=== PATIENT | male | born 1960 ===

== ENCOUNTER 2025-03-11 18:19 | Inpatient (IN) | payer OTHER, SELFPAY ==
[2025-03-11] VITALS (14 sets, daily range): BP systolic 103–132; BP diastolic 62–79; BMI 28.1
[2025-03-11 11:39] LABS: Urine Albumin 4+ (Neg - Trace); Urine Bilirubin 1+ (Negative); Urine Character Cloudy (Clear); Urine Color Yellow; Urine Glucose Negative (Negative); Urine Ketone Negative (Negative); Urine Leukocyte 1+ (Negative); Urine Nitrite Negative (Negative); Urine Occult Blood 4+ (Negative); Urine Urobilinogen 1+ (Neg - 1+)
[2025-03-11 11:55] LABS: Urine Bacteria Moderate (Negative); Urine Squamous Cell 0-2 /LPF (Few)
[2025-03-11 11:57] LABS: Urine Red Blood Cell 0-2 /HPF (0-2)
[2025-03-11 12:14] LABS: % Basophils 0.5 % (0-2); % Eosinophils 1.6 % (0-6); % Immature Granulocytes 0.4 % (0-0.5); % Lymphocytes 7.1 % (20.5-51.1); % Monocytes 14.4 % (1.7-9.3); Absolute Eosinophils 0.1 10^3/uL (0-0.7); Absolute Lymphocytes 0.5 10^3/uL (1.2-3.4); Absolute Monocytes 1.1 10^3/uL (0.1-0.6); Absolute Neutrophils 5.6 10^3/uL (1.4-6.5); Hematocrit 34.3 % (39.0-52.0); Hemoglobin 12.1 g/dL (13.0-18.0); Mean Corp Hgb Conc. 35.3 g/dL (33.0-37.0); Mean Corpuscular Hgb 39.2 pg (27.0-31.0); Nucleated Red Blood Cells % 0 % (-); Red Blood Cell Count 3.09 10^6/uL (4.70-6.10); Red Cell Dist. Width 13.8 % (11.5-14.5); White Blood Cell Count 7.4 10^3/uL (4.8-10.8)
[2025-03-11 12:17] LABS: ALT (SGPT) 166 U/L (0-50); Albumin 3.6 g/dl (3.5-5.0); Alkaline Phosphatase 268 U/L (38-126); Blood Urea Nitrogen 20 mg/dl (9-20); Calcium 8.8 mg/dl (8.4-10.2); Carbon Dioxide 21 mmol/L (22-30); Chloride 109 mmol/L (98-107); Glucose 106 mg/dl (70-99); Lipase 540 U/L (23-300); Potassium 3.5 mmol/L (3.5-5.1); Sodium 142 mmol/L (135-145); Total Bilirubin 1.8 mg/dl (0.2-1.3); Total Protein 6.8 g/dl (6.3-8.2); eGFR 47.52
[2025-03-11 12:23] LABS: AST (SGOT) 1083 U/L (17-59)
[2025-03-11 12:32] LABS: Mean Platelet Volume 11.3 fL (7.4-10.4); Platelet Count 88 10^3/uL (130-400)
[2025-03-11] MEDS: NSS 500 IV (12:54)
[2025-03-11 13:28] LABS: Acetaminophen < 10 ug/ml (10-30); Alcohol None Detected
--- NOTE | 2025-03-11 13:44 | ED.GENMED ---
History of Present Illness
<Karla Guerrero MD - Last Filed: 03/11/25 16:04>
General
Chief Complaint: Urinary Symptoms
Source: patient
Time Seen by Provider: 03/11/25 12:38
History of Present Illness
History of Present Illness:
This patient is a 64-year-old male who presents to the emergency department multiple complaints. He states that his symptoms all started about a week ago, described dark urine although his stool is unchanged in color associated with 'the muscles in
my legs really hurt', partially relieved with Motrin as well as very slight episodes gastric discomfort. Patient has a history of alcohol use disorder, says that he averages approximately 4 drinks a day but has not had a drink alcohol in the last 2
weeks. He denies black stool, hematemesis, chest pain, dyspnea, back pain, fever, chills, headache, dizziness. Patient denies acetaminophen use, recent injections/tattoos, sick contacts.
Past History
<Karla Guerrero MD - Last Filed: 03/11/25 16:04>
Past History
ED Past Medical History: Other (Hypercholesterolemia, sleep apnea, pancreatitis, a flutter)
Social History
Tobacco: Non-smoker
Alcohol: Chronic alcoholic
Drug: None
Living: alone
Phy Exam
<KIRA Camargo - Last Filed: 03/18/25 05:56>
Physical Exam
Physical Exam:
n/a
Course
<Karla Guerrero MD - Last Filed: 03/11/25 16:04>
Orders/Labs/Results
Orders:
Orders
03/11/25 11:16
Complete Blood Count/With Diff Urgent
Comprehensive Metabolic Panel Urgent
Lipase Urgent
Magnesium Urgent
Comment: ADD ON
Phosphorus Urgent
Comment: ADD ON
Urinalysis Reflex To Culture Urgent
Date Specimen was Collected: 03/11/25
Time Specimen was Collected: 11:13
Urine Microscopic Reflex Cult Urgent
Urine Culture Urgent
BHARAT Source: U
Specimen Description:
Date Specimen was Collected: 03/11/25
Time Specimen was Collected: 11:13
03/11/25 12:41
0.9% Sodium Chloride 500 ml [Nss] 500 ml IV BOLUS
US Abdomen Complete/Upper Urgent
Comment:
Reason For Exam: abnl lfts
03/11/25 12:52
Acetaminophen Urgent
Alcohol Urgent
03/11/25 13:48
Electrocardiogram (*1) Urgent
Reason for Study: Abdominal Pain
EKG- Treatment ONCE
03/11/25 14:42
CPK [Creatine Phosphokinase] Urgent
Hepatitis A IgM Antibody Urgent
Hepatitis B Core Ab, IgM Urgent
Hepatitis B Surface Antibody Urgent
Hepatitis B Surface Antigen Urgent
Hepatitis C Antibody Urgent
PTT Urgent
Prothrombin Time Urgent
Troponin I Urgent
03/11/25 Dinner
Cholesterol Lowering
At Your Request: Full Participation
Cholesterol Lowering: Sodium, 2 Gram
03/11/25 15:52
0.9% Sodium Chloride 1000 ml [Nss] 1,000 ml IV BOLUS
03/11/25 16:00
0.45% Sodium Chloride 1000 ml [0.45%NaCl] 1,000 ml Sodium Bicarbonate 75 meq IV 250 mls/hr
03/11/25 16:15
0.45% Sodium Chloride 1000 ml [0.45%NaCl] 1,000 ml Sodium Bicarbonate 75 meq IV 250 mls/hr
03/11/25 16:58
Admit/Transfer Patient As Directed
Co-Sign Provider:
Level of Care: Inpatient admission
Assign to:: Telemetry
Physician / Group: Jared Serrano
Diagnosis: rhabdomyolysis, acute kidney injury, transaminitis
Reason for Telemetry: Arrhythmia
Date to Stop Telemetry: 03/14/25
Time to Stop Telemetry: 11:00
Reason for Hospitalization: rhabdomyolysis, acute kidney injury, transaminitis
Expected length of stay greater than two midnights?: Yes
ELOS- Estimated Length of Stay in days: 3
I certify the patient meets the requirements for IP care: Yes
PRN Pain Medication Management As Directed
May give lesser potent ordered pain med per pt: Yes
preference::
Protocol:: Medication orders for pain may be administered in a
manner that supports deferring to patient preference
when the pt is:
- Requesting an ordered lesser potent pain medication.
Least to most potent pain medications are defined
as: acetaminophen < NSAID < tramadol < opioids
(morphine, oxycodone, hydromorphone).
- Requesting a lesser dose of the same medication IF
ORDERED.
- Requesting a less intrusive route of administration
if both routes are prescribed by the provider (PO <
IV).
03/11/25 17:01
Code Status As Directed
Resuscitation Status: Full Code
03/11/25 17:20
0.9% Sodium Chloride 1000 ml [Nss] 1,000 ml IV 150 mls/hr
03/11/25 17:20
Activity As Directed
Activity Level: Ambulate
Vital Signs As Directed
Frequency: Per unit guidelines
Weight As Directed
Frequency: Once
Comment: on admission
03/11/25 18:00
Metoprolol Xl [Toprol Xl] 200 mg PO QPM
03/11/25 19:00
Amiodarone [Pacerone] 100 mg PO MOWEFR@1900
03/11/25 20:00
Apixaban [Eliquis] 5 mg PO BID
03/11/25 21:09
Troponin I Q6H
03/12/25 04:10
Complete Blood Count/No Diff IN AM
Comprehensive Metabolic Panel IN AM
Creatine Phosphokinase IN AM
Lipase IN AM
Prothrombin Time IN AM
Troponin I Q6H
03/12/25 08:00
Metoprolol Xl [Toprol Xl] 100 mg PO DAILY
03/14/25 11:00
DC Protocol for Telemetry ONCE
Abnormal Lab Results
03/11/25 03/11/25 03/11/25
11:16 12:52 14:42
RBC 3.09 L 10^6/uL
(4.70-6.10)
Hgb 12.1 L g/dL
(13.0-18.0)
Hct 34.3 L %
(39.0-52.0)
MCV 111.0 H fL
(80.0-94.0)
MCH 39.2 H pg
(27.0-31.0)
Plt Count 88 L 10^3/uL
(130-400)
MPV 11.3 H fL
(7.4-10.4)
Absolute Lymphs (auto) 0.5 L 10^3/uL
(1.2-3.4)
Absolute Monos (auto) 1.1 H 10^3/uL
(0.1-0.6)
Neutrophils % 76.0 H %
(42.2-75.2)
Lymphocytes % 7.1 L %
(20.5-51.1)
Monocytes % 14.4 H %
(1.7-9.3)
PT 23.0 H Sec
(11.4-14.6)
APTT 49.4 H Sec
(23.4-35.0)
Chloride 109 H mmol/L
(98-107)
Carbon Dioxide 21 L mmol/L
(22-30)
Creatinine 1.6 H mg/dL
(0.7-1.3)
Glucose 106 H mg/dl
(70-99)
Total Bilirubin 1.8 H mg/dl
(0.2-1.3)
AST 1083 H* U/L
(17-59)
ALT 166 H U/L
(0-50)
Alkaline Phosphatase 268 H U/L
(38-126)
Creatine Kinase 58402 H U/L
(55-170)
Troponin I 0.055 H* ng/ml
Lipase 540 H U/L
(23-300)
Ur Occult Blood Reflex 4+ A
(Negative)
Urine Bilirubin 1+ A
(Negative)
Leukocyte Esterase Rfl 1+ A
(Negative)
Urine WBC (Reflex) 11-15 A /HPF
(0-5)
Urine Bacteria (Reflex) Moderate A
(Negative)
Urine Albumin (Reflex) 4+ A
(Neg - Trace)
Acetaminophen < 10 L ug/ml
(10-30)
03/11/25 11:16
03/11/25 11:16
Vital Signs
Initial and Last Documented VS:
Initial Vital Signs
Temp Pulse Resp BP Pulse Ox
97.6 F 60 18 105/62 98
03/11/25 11:10 03/11/25 11:10 03/11/25 11:10 03/11/25 11:10 03/11/25 11:10
Last Documented Vital Signs
Temp Pulse Resp BP Pulse Ox
97.9 F 58 20 123/75 95
03/17/25 07:51 03/17/25 07:51 03/17/25 07:51 03/17/25 07:51 03/17/25 07:51
<KIRA Camargo - Last Filed: 03/18/25 05:56>
Orders/Labs/Results
Orders:
Orders
03/11/25 11:16
Complete Blood Count/With Diff Urgent
Comprehensive Metabolic Panel Urgent
Lipase Urgent
Magnesium Urgent
Comment: ADD ON
Phosphorus Urgent
Comment: ADD ON
Urinalysis Reflex To Culture Urgent
Date Specimen was Collected: 03/11/25
Time Specimen was Collected: 11:13
Urine Microscopic Reflex Cult Urgent
Urine Culture Urgent
BHARAT Source: U
Specimen Description:
Date Specimen was Collected: 03/11/25
Time Specimen was Collected: 11:13
03/11/25 12:41
0.9% Sodium Chloride 500 ml [Nss] 500 ml IV BOLUS
US Abdomen Complete/Upper Urgent
Comment:
Reason For Exam: abnl lfts
03/11/25 12:52
Acetaminophen Urgent
Alcohol Urgent
03/11/25 13:48
Electrocardiogram (*1) Urgent
Reason for Study: Abdominal Pain
EKG- Treatment ONCE
03/11/25 14:42
CPK [Creatine Phosphokinase] Urgent
Hepatitis A IgM Antibody Urgent
Hepatitis B Core Ab, IgM Urgent
Hepatitis B Surface Antibody Urgent
Hepatitis B Surface Antigen Urgent
Hepatitis C Antibody Urgent
PTT Urgent
Prothrombin Time Urgent
Troponin I Urgent
03/11/25 Dinner
Cholesterol Lowering
At Your Request: Full Participation
Cholesterol Lowering: Sodium, 2 Gram
03/11/25 15:52
0.9% Sodium Chloride 1000 ml [Nss] 1,000 ml IV BOLUS
03/11/25 16:00
0.45% Sodium Chloride 1000 ml [0.45%NaCl] 1,000 ml Sodium Bicarbonate 75 meq IV 250 mls/hr
03/11/25 16:15
0.45% Sodium Chloride 1000 ml [0.45%NaCl] 1,000 ml Sodium Bicarbonate 75 meq IV 250 mls/hr
03/11/25 16:58
Admit/Transfer Patient As Directed
Co-Sign Provider:
Level of Care: Inpatient admission
Assign to:: Telemetry
Physician / Group: Jared Serrano
Diagnosis: rhabdomyolysis, acute kidney injury, transaminitis
Reason for Telemetry: Arrhythmia
Date to Stop Telemetry: 03/14/25
Time to Stop Telemetry: 11:00
Reason for Hospitalization: rhabdomyolysis, acute kidney injury, transaminitis
Expected length of stay greater than two midnights?: Yes
ELOS- Estimated Length of Stay in days: 3
I certify the patient meets the requirements for IP care: Yes
PRN Pain Medication Management As Directed
May give lesser potent ordered pain med per pt: Yes
preference::
Protocol:: Medication orders for pain may be administered in a
manner that supports deferring to patient preference
when the pt is:
- Requesting an ordered lesser potent pain medication.
Least to most potent pain medications are defined
as: acetaminophen < NSAID < tramadol < opioids
(morphine, oxycodone, hydromorphone).
- Requesting a lesser dose of the same medication IF
ORDERED.
- Requesting a less intrusive route of administration
if both routes are prescribed by the provider (PO <
IV).
03/11/25 17:01
Code Status As Directed
Resuscitation Status: Full Code
03/11/25 17:20
0.9% Sodium Chloride 1000 ml [Nss] 1,000 ml IV 150 mls/hr
03/11/25 17:20
Activity As Directed
Activity Level: Ambulate
Vital Signs As Directed
Frequency: Per unit guidelines
Weight As Directed
Frequency: Once
Comment: on admission
03/11/25 18:00
Metoprolol Xl [Toprol Xl] 200 mg PO QPM
03/11/25 19:00
Amiodarone [Pacerone] 100 mg PO MOWEFR@1900
03/11/25 20:00
Apixaban [Eliquis] 5 mg PO BID
03/11/25 21:09
Troponin I Q6H
03/12/25 04:10
Complete Blood Count/No Diff IN AM
Comprehensive Metabolic Panel IN AM
Creatine Phosphokinase IN AM
Lipase IN AM
Prothrombin Time IN AM
Troponin I Q6H
03/12/25 08:00
Metoprolol Xl [Toprol Xl] 100 mg PO DAILY
03/14/25 11:00
DC Protocol for Telemetry ONCE
Abnormal Lab Results
03/11/25 03/11/25 03/11/25
11:16 12:52 14:42
RBC 3.09 L 10^6/uL
(4.70-6.10)
Hgb 12.1 L g/dL
(13.0-18.0)
Hct 34.3 L %
(39.0-52.0)
MCV 111.0 H fL
(80.0-94.0)
MCH 39.2 H pg
(27.0-31.0)
Plt Count 88 L 10^3/uL
(130-400)
MPV 11.3 H fL
(7.4-10.4)
Absolute Lymphs (auto) 0.5 L 10^3/uL
(1.2-3.4)
Absolute Monos (auto) 1.1 H 10^3/uL
(0.1-0.6)
Neutrophils % 76.0 H %
(42.2-75.2)
Lymphocytes % 7.1 L %
(20.5-51.1)
Monocytes % 14.4 H %
(1.7-9.3)
PT 23.0 H Sec
(11.4-14.6)
APTT 49.4 H Sec
(23.4-35.0)
Chloride 109 H mmol/L
(98-107)
Carbon Dioxide 21 L mmol/L
(22-30)
Creatinine 1.6 H mg/dL
(0.7-1.3)
Glucose 106 H mg/dl
(70-99)
Total Bilirubin 1.8 H mg/dl
(0.2-1.3)
AST 1083 H* U/L
(17-59)
ALT 166 H U/L
(0-50)
Alkaline Phosphatase 268 H U/L
(38-126)
Creatine Kinase 68724 H U/L
(55-170)
Troponin I 0.055 H* ng/ml
Lipase 540 H U/L
(23-300)
Ur Occult Blood Reflex 4+ A
(Negative)
Urine Bilirubin 1+ A
(Negative)
Leukocyte Esterase Rfl 1+ A
(Negative)
Urine WBC (Reflex) 11-15 A /HPF
(0-5)
Urine Bacteria (Reflex) Moderate A
(Negative)
Urine Albumin (Reflex) 4+ A
(Neg - Trace)
Acetaminophen < 10 L ug/ml
(10-30)
03/11/25 11:16
03/11/25 11:16
Vital Signs
Initial and Last Documented VS:
Initial Vital Signs
Temp Pulse Resp BP Pulse Ox
97.6 F 60 18 105/62 98
03/11/25 11:10 03/11/25 11:10 03/11/25 11:10 03/11/25 11:10 03/11/25 11:10
Last Documented Vital Signs
Temp Pulse Resp BP Pulse Ox
97.9 F 58 20 123/75 95
03/17/25 07:51 03/17/25 07:51 03/17/25 07:51 03/17/25 07:51 03/17/25 07:51
<KIRA Camargo - Last Filed: 03/18/25 05:56>
*Critical Care Note
Total Time (30-74mins, 75-104mins- exclusive of procedures): Not Applicable
<Karla Guerrero MD - Last Filed: 03/11/25 16:04>
Update Note
Update Note:
Patient presents to the Emergency Department with dark urine
Number and Complexity of Problems Addressed at the Encounter
� Chronic conditions affecting care:
� Acute Exacerbation and/or Progression of Chronic Illness:
� Differential Diagnosis includes: But not limited to alcoholic hepatitis, infectious hepatitis, pancreatitis, gastritis, peptic ulcer disease, rhabdomyolysis, etc. etc.
Amount and/or Complexity of Data to be Reviewed and Analyzed
� I performed an independent evaluation of and my interpretation is:
EKG: Read by me, sinus bradycardia, Q waves noted septal leads no prior for comparison
CT:
Xrays:Normal appearance the gallbladder with no evidence for biliary ductal dilation.
Diffuse fatty infiltration of the liver with no evidence for a focal hepatic lesion.
Splenomegaly.
The pancreas, upper abdominal IVC, and the upper abdominal aorta are unable to be adequately visualized.
Laboratory Studies: Transaminase elevation suggestive of alcoholic hepatitis, chronic thrombocytopenia, chronic anemia, elevated creatinine. LFT abnormalities also noted in alk phos and total bili. Lipase slightly elevated
Other:
� Review of other/old records reveals: Admitted with pancreatitis related to elevated triglyceride levels
� Clinical information was obtained by an independent historian:
� Prescriptions/Medications Considered but not given:
� Further testing considered but not performed:
CPK just resulted and very elevated, add on mag and phos level, started ivf and bicarb, will admit. trop elevated withotu assoc iscehmic changes, cp, etc.
Rhabdo may related to patient's history of alcohol use disorder or his use of a statin as the most likely possibilities, doubt infection. No signs or symptoms to suggest compartment syndrome. Will monitor pH and lites closely. Case discussed with
hospitalist for admission.
Risk of Complications and/or Morbidity or Mortality of Patient Management
� Social determinants of health affecting care:
� Discussion with other providers (PCP, Hospitalists, Consultants, etc):
� Escalation of care including admission/observation vs risk of discharge considered:
ED Attending Note
<KIRA Camargo - Last Filed: 03/18/25 05:56>
-
Portions of this chart may have been created with voice recognition software.� Occasional wrong word or��sound alike� substitutions may have occurred due to the inherent limitations of voice recognition software.
Discharge Plan
Departure
Patient Disposition: Admit
Date of Disposition: 03/11/25
Time of Disposition: 15:59
Presentation/result/management discussed w/ accepting MD/DO: Hospitalist
Condition: Fair
Discharge Problem:
Abnormal LFTs, Rhabdomyolysis, Acute renal insufficiency, Hepatitis
Interventions
Interventions:
*Risk Screen - Suicide Last Done: 03/11/25 11:12
*General Assessment Last Done: 03/11/25 11:12
*Neglect/Abuse Screening Last Done: 03/11/25 11:12
*ED- Fall Risk Assessment Last Done: 03/11/25 12:44
*ED COVID-19 Vaccine History Last Done: 03/11/25 11:12
*Nursing Disposition Last Done: 03/12/25 18:56
ED-Male Genitourinary Assessment Last Done: 03/11/25 12:44
Discharge Date and Time
Discharge Date/Time: 03/12/25 18:56
[2025-03-11 15:25] LABS: Troponin I 0.055 ng/ml
[2025-03-11 15:38] LABS: Creatine Phosphokinase 21658 U/L (55-170)
[2025-03-11 15:50] LABS: INR 2.02
[2025-03-11 15:51] LABS: APTT 49.4 Sec (23.4-35.0)
[2025-03-11] MEDS: NSS 1000 IV ×2 (15:59→17:48)
--- NOTE | 2025-03-11 16:02 | HPS.HSE ---
Family Physician
-
Family Physician: NOT KNOW UNKNOWN - PT DOES
Chief Complaint
-
dark urine
History of Present Illness
Patient is a 64-year-old male with past medical history significant for atrial flutter and hypercholesterolemia who presented to [facility] ED for evaluation of dark urine. Patient reports a week ago on 03/04/2025 he noticed that he had muscle pain in
back legs in thighs and calves. Same day he noticed dark urine, brown in color. He decided to increased fluids to approximately 4 bottles a day thinking he was dehydrated and this has not helped. Urine has remained dark and still has muscle
discomfort now also in bilateral arms. He does report night sweats with foul odor. Has some shortness of breath with exertion and poor appetite. Patient denies any recent injury or trauma. Denies any fever, chills, cough, chest pain, nausea,
vomiting, constipation or diarrhea. He denies any other urinary symptoms outside of dark urine. He mentions he has been a daily drink up until about 2 weeks ago, would have approximately 4 drinks a night while watching TV.
Medical History
Past Medical History
Past Medical History: Reports Other
Additional Past Medical History:
atrial flutter
hypercholesterolemia
hypertriglyceridemia
Hx pancreatitis
Past Surgical History: Reports Other
Additional Past Surgical History:
inguinal hernia repair
Social History
Tobacco: Non-smoker
Alcohol: Former (4 drinks per night, stopped approximately 2 weeks ago )
Drug: None
Personal:
Living: With Family
Employment: Retired
Family History
Family History: Not pertinent and Other (Father: Non-Hogkins lymphoma )
Allergies / Home Medications
Allergies reflects when Allergies were last updated in [employer].
Home Medications with original date entered in [employer]
Allergy/Medication List:
Allergies
Allergy/AdvReac Type Severity Reaction Status Date / Time
Opioids - Morphine Analogues Allergy Vomiting Verified 07/01/22 16:52
Home Medications
apixaban 5 mg tablet (Eliquis) 5 mg PO BID Blood clot prevention/tx 05/28/22
metoprolol succinate 100 mg tablet,extended release 24 hr 200 mg PO QPM Arrhythmia 05/28/22
ibuprofen 200 mg tablet 800 mg PO DAILYPRN PRN mild pain 07/01/22
amiodarone 100 mg tablet 100 mg PO MOWEFR@1900 03/11/25
metoprolol succinate 100 mg tablet,extended release 24 hr (Toprol XL) 100 mg PO DAILY 03/11/25
rosuvastatin 20 mg tablet (Crestor) 20 mg PO DAILY 03/11/25
Review of Systems
-
History Source: Patient
Constitutional: Reports Night Sweats
EENT: Reports No Symptoms
Respiratory: Reports Trouble Breathing (exertional shortness of breath )
Cardiac: Reports No Symptoms
Abdomen/GI: Reports No Symptoms
: Reports Dark Urine
Musculoskeletal: Reports No Symptoms and Muscle Pain (generalized )
Skin: Reports No Symptoms
Neurological: Reports No Symptoms
Endocrine: Reports No Symptoms
Hematologic/Lymphatic: Reports No Symptoms
Psych: Reports No Symptoms
Physical Exam
Vital Signs
Vital Signs
Temp Pulse Resp BP Pulse Ox
97.6 F 60 18 115/72 99
03/11/25 11:10 03/11/25 11:10 03/11/25 11:10 03/11/25 15:00 03/11/25 15:45
Physical Exam
General: Well Developed, Well Nourished, No Apparent Distress, Comfortable and Obese
HEENT: NormoCephalic, Moist mucous membranes, Atraumatic, [place] Conjunctivae, Nose Appears Normal and Ears Appear Normal
Respiratory: Clear
Cardiac: S1/S2 and Regular Rhythm
Breast: Deferred by me
GI: Soft, Non Tender, Non Distended and Normal Bowel Sounds
Rectal: Deferred by Provider
Genito-urinary: Deferred by me
Musculoskeletal: No Clubbing, No Cyanosis and No Edema
Skin: Warm and IV/Catheter Site
Neuro: Awake, Alert, AO x 3 and Nonfocal/grossly intact
Psych: Calm and Intact Judgment/Insight
Laboratory Results
-
03/11/25 11:16
03/11/25 11:16
Laboratory Results
PT 23.0 Sec (11.4-14.6) H 03/11/25 14:42
INR 2.02 03/11/25 14:42
APTT 49.4 Sec (23.4-35.0) H 03/11/25 14:42
Total Bilirubin 1.8 mg/dl (0.2-1.3) H 03/11/25 11:16
AST 1083 U/L (17-59) H* 03/11/25 11:16
ALT 166 U/L (0-50) H 03/11/25 11:16
Alkaline Phosphatase 268 U/L (38-126) H 03/11/25 11:16
Troponin I 0.055 ng/ml H* 03/11/25 14:42
Lipase 540 U/L (23-300) H 03/11/25 11:16
Data Reviewed
-
Ultrasound: Report Reviewed by me (Abd: Normal appearance the gallbladder with no evidence for biliary ductal dilation. Diffuse fatty infiltration of the liver with no evidence for a focal hepatic lesion. Splenomegaly. The pancreas, upper
abdominal IVC, and the upper abdominal aorta are unable to be adequately visualized. )
Lab Data: Labs Reviewed by me (INR 3.02, BUN 20, Creat 1.6, eGFR 47.52, tot bili1.8, AST 1083, ALT 166, Alk Phos 268, [place] [address], Trop 0.055)
Impression/Plan
-
IMPRESSION/PLAN:
#rhabdomyolysis
INR 3.02, BUN 20, Creat 1.6, eGFR 47.52, tot bili1.8, AST 1083, ALT 166, Alk Phos 268, [place] [address], Trop 0.055
Abdomen US: Normal appearance the gallbladder with no evidence for biliary ductal dilation.
Diffuse fatty infiltration of the liver with no evidence for a focal hepatic lesion.
Splenomegaly.
The pancreas, upper abdominal IVC, and the upper abdominal aorta are unable to be adequately visualized.
EKG: SINUS BRADYCARDIA
LOW VOLTAGE QRS INLIMB LEADS
INFERIOR INFARCT , AGE UNDETERMINED
CANNOT RULE OUT ANTEROSEPTAL INFARCT , AGE UNDETERMINED
NON-SPECIFIC INTRA-VENTRICULAR CONDUCTION DELAY
PROLONGED QT
- Admit to telemetry
- IVF NSS 150cc/hr
- trend CK, LFTs and troponin
#acute kidney injury
BUN 20, Creat 1.6, eGFR 47.52
- IVF NSS 100cc/hr
- monitor BMP
#transaminitis
INR 3.02, tot bili1.8, AST 1083, ALT 166, Alk Phos 268, [place] [address]
mild epigastric discomfort, poor appetite
- trend LFTs and INRs
- hold ibuprofen and statin
- consider GI if symptoms or labs worsen
#atrial flutter
EKG: SINUS BRADYCARDIA
LOW VOLTAGE QRS INLIMB LEADS
INFERIOR INFARCT , AGE UNDETERMINED
CANNOT RULE OUT ANTEROSEPTAL INFARCT , AGE UNDETERMINED
NON-SPECIFIC INTRA-VENTRICULAR CONDUCTION DELAY
PROLONGED QT
- continue amiodarone, Eliquis and metoprolol
#hypercholesterolemia
#hypertriglyceridemia
- hold rosuvastatin in setting of transaminitis
#Hx pancreatitis
Code status: full code
DVT prophylaxis: Eliquis
[2025-03-11 16:30] LABS: Phosphorus 2.9 mg/dl (2.5-4.5)
--- NOTE | 2025-03-11 16:56 | W.PN.UPDATE ---
Update Note
Progress Note Update
This is an addendum to H&P written by Elizabeth King on 03/11/2025. Patient seen and examined independently with [facility].
64-year-old male past medical history of atrial flutter on Eliquis, hypertriglyceridemia, prior pancreatitis, alcohol use disorder, presenting with multiple complaints starting a week ago including dark urine, bilateral leg pain with Motrin use,
mild vague abdominal discomfort and decreased appetite.
Vital signs normal. Labs show severe transaminitis with AST up to 1000, CK of 21,000, lipase of 540, creatinine 1.6 from 1.3 previously. Troponin of 0.055. Platelets of 88. INR of 2.
EKG shows sinus bradycardia, voltage QRS.
Abdominal ultrasound shows normal-appearing gallbladder without biliary ductal dilatation. Please fatty infiltration of the liver with no focal hepatic lesion. Splenomegaly.
Patient with acute rhabdomyolysis unclear cause with transaminitis likely secondary to rhabdomyolysis although higher than would be expected with rhabdomyolysis. Hepatitis panel pending. Slight troponin elevation and CECILIA likely from rhabdomyolysis.
IV fluids, trend CK level. Trend LFTs. Hepatitis panel pending. Hold NSAID. Hold statin.
INR elevated 2 which is also atypical for rhabdomyolysis and Eliquis use. No signs of acute liver failure given albumin 3.6 and normal mental status. Recheck INR in the morning.
Consider GI if LFTs continue to worsen or patient develops worsening GI symptoms.
[2025-03-11 18:26] LABS: Hepatitis B Surface Antigen Negative (Negative)
[2025-03-11 18:30] LABS: Hepatitis A IgM Antibody Negative (Negative); Hepatitis B Core Ab, IgM Negative (Negative)
[2025-03-11 18:44] LABS: Hepatitis B Surface Antibody Negative; Hepatitis C Antibody Negative (Negative)
[2025-03-11] MEDS: ELIQUIS 5 MG PO (21:11)
[2025-03-11 21:50] LABS: Troponin I 0.047 ng/ml
[2025-03-11] MEDS: TOPROL XL 200 MG PO (21:52)
[2025-03-11] MEDS: PACERONE 100 MG PO (21:52)
[2025-03-12] VITALS (20 sets, daily range): BP systolic 92–130; BP diastolic 53–75; BMI 28.1; BMI 29.8
[2025-03-12] MEDS: NSS 1000 IV ×4 (00:26→22:04)
[2025-03-12] MEDS: DILAUDID 0.25 MG IV (01:53)
[2025-03-12 04:28] LABS: Hematocrit 28.9 % (39.0-52.0); Hemoglobin 9.9 g/dL (13.0-18.0); Mean Corp Hgb Conc. 34.3 g/dL (33.0-37.0); Mean Corpuscular Volume 113.8 fL (80.0-94.0); Mean Platelet Volume 11.4 fL (7.4-10.4); Platelet Count 85 10^3/uL (130-400); Red Blood Cell Count 2.54 10^6/uL (4.70-6.10); Red Cell Dist. Width 13.9 % (11.5-14.5)
[2025-03-12 04:43] LABS: ALT (SGPT) 130 U/L (0-50); AST (SGOT) 652 U/L (17-59); Albumin 2.7 g/dl (3.5-5.0); Alkaline Phosphatase 213 U/L (38-126); Blood Urea Nitrogen 21 mg/dl (9-20); Calcium 7.7 mg/dl (8.4-10.2); Carbon Dioxide 24 mmol/L (22-30); Chloride 110 mmol/L (98-107); Estimated Creatinine Clearance 57 ml/min; Glucose 100 mg/dl (70-99); Lipase 415 U/L (23-300); Potassium 3.2 mmol/L (3.5-5.1); Sodium 141 mmol/L (135-145); Total Protein 5.5 g/dl (6.3-8.2); eGFR > 60.00
[2025-03-12 04:52] LABS: Creatine Phosphokinase 14279 U/L (55-170)
[2025-03-12 04:54] LABS: Troponin I 0.063 ng/ml
[2025-03-12] MEDS: ELIQUIS 5 MG PO ×2 (08:27→20:34)
[2025-03-12] MEDS: TOPROL XL 100 MG PO (08:27)
[2025-03-12] MEDS: KCL 40 MEQ PO (08:30)
[2025-03-12] MEDS: TYLENOL 650 MG PO (09:25)
[2025-03-12] MEDS: ROXICODONE 5 MG PO ×2 (11:48→22:04)
[2025-03-12] MEDS: TIGAN 200 MG IM (11:48)
--- NOTE | 2025-03-12 12:41 | W.PN.HOSP.TC ---
Today's Communication/Plan
-
Pain control
Continue with aggressive IV fluid resuscitation
Hold Crestor
Trend enzymes
Assessment / Plan
Assessment / Plan
#Severe rhabdomyolysis/myalgia likely 2/2 to Crestor
# Transaminitis likely secondary to rhabdomyolysis
# Elevated troponin likely secondary rhabdomyolysis
- CPK was significantly elevated on admission. CPK downtrending
- Continue with aggressive IV fluid resuscitation.
- AST and ALT improving
- Abdominal ultrasound noted
- T. bili and downtrended to normal. Seems chronically elevated AST.
- Continue to trend CPK and LFTs.
#acute kidney injury
#Hypokalemia
- Creatinine downtrending. Continue with IV fluid resuscitation
-Replete and monitor
#atrial flutter
- continue amiodarone, Eliquis and metoprolol
#hypercholesterolemia
#hypertriglyceridemia
- hold rosuvastatin in setting of transaminitis
#Hx pancreatitis
#Hepatic steatosis
#Splenomegaly
- Will will need close outpatient follow-up
# History of gout
- Takes ibuprofen as needed for gout pain.
Code status: full code
DVT prophylaxis: Eliquis
Anticipated Discharge: > 48 hours
Subjective/Interval History
-
Date of Service: March 12, 2025
states of left thigh/leg pain which started last week
states history of severe gout
Objective Data
-
Labs:
Laboratory Results
03/12/25
04:10
WBC 6.0
Hgb 9.9 L
Hct 28.9 L
Plt Count 85 L
PT 22.0 H
INR 1.90
Sodium 141
Potassium 3.2 L
Chloride 110 H
Carbon Dioxide 24
BUN 21 H
Creatinine 1.3
Glucose 100 H
Calcium 7.7 L
Total Bilirubin 1.0
AST 652 H*
ALT 130 H
Alkaline Phosphatase 213 H
Vital Signs:
Vital Signs
Temp Pulse Resp BP Pulse Ox
98.6 F 66 17 95/67 93
03/12/25 11:26 03/12/25 11:17 03/12/25 11:17 03/12/25 11:17 03/12/25 11:17
Physical Exam
-
General: Well Developed and No Apparent Distress
HEENT: Normocephalic, Atraumatic and Moist Mucous Membranes
Respiratory: Clear to Auscultation
Cardiac: Regular Rhythm and S1/S2; Negative Murmur, Rub or Gallop
GI: Soft, Nontender, Nondistended and Normal Bowel Sounds; Negative Organomegaly
Rectal: Deferred by Provider
Musculoskeletal: No Clubbing, No Cyanosis and No Edema
Skin: Warm; Negative Rash
Neuro: Awake, Alert, Oriented, AO x 3, No Motor Deficits and Nonfocal/Grossly Intact
Psych: Calm
Data Reviewed
-
Total Time Spent with Patient (in minutes): 55
--- NOTE | 2025-03-12 16:27 | CM ---
Addendum entered by Gia Reilly 03/12/25 16:37:
Notified Admissions; Family Physician updated on medical record
Original Note:
Met with patient at the bedside in the ED
Pharmacy verified: [facility] @ [address] [place] [address]
Family Physician: Jona Miles DO; [facility], [facility] [place] [address];
Patient lives w/ ; multilevel home; 0 steps to enter; 12 steps between floors; patient's bedroom and bath are on the 1st floor; bath has tub w/ shower
PLOF: at baseline patient reports he is independent with ambulation and ADLs; drives; retired
DME: has a cane and crutches; uses PRN
No SNF or Home Health utilization history
Transport: patient drove self to hospital; will drive self home unless told not to do so
Per PT, NO skilled PT needed
Plan: Discharge to home when medically stable; Case Management will monitor for needs/services and support accordingly
--- NOTE | 2025-03-12 17:27 | PTCARENOTE ---
hr 58. scheduled to give 200mg of Metoprol. hos. notified. instructed to hold med.
[2025-03-13] MEDS: ROXICODONE 5 MG PO ×2 (02:05→07:56)
[2025-03-13] MEDS: TYLENOL 650 MG PO (02:28)
[2025-03-13 04:12] VITALS: BP 109/59
[2025-03-13 04:15] VITALS: BMI 30.2
[2025-03-13] MEDS: NSS 1000 IV (04:15)
[2025-03-13 07:21] LABS: % Basophils 0.3 % (0-2); % Eosinophils 0.6 % (0-6); % Immature Granulocytes 0.3 % (0-0.5); % Lymphocytes 10.2 % (20.5-51.1); % Monocytes 23.4 % (1.7-9.3); % Neutrophils 65.2 % (42.2-75.2); Absolute Lymphocytes 0.7 10^3/uL (1.2-3.4); Absolute Monocytes 1.5 10^3/uL (0.1-0.6); Absolute Neutrophils 4.2 10^3/uL (1.4-6.5); Hematocrit 26.8 % (39.0-52.0); Hemoglobin 9.3 g/dL (13.0-18.0); Mean Corp Hgb Conc. 34.7 g/dL (33.0-37.0); Mean Corpuscular Hgb 38.8 pg (27.0-31.0); Mean Corpuscular Volume 111.7 fL (80.0-94.0); Mean Platelet Volume 11.5 fL (7.4-10.4); Nucleated Red Blood Cells % 0 % (-); Platelet Count 97 10^3/uL (130-400); Red Cell Dist. Width 13.8 % (11.5-14.5); White Blood Cell Count 6.4 10^3/uL (4.8-10.8)
[2025-03-13 07:30] VITALS: BP 166/64
[2025-03-13 07:36] LABS: ALT (SGPT) 98 U/L (0-50); AST (SGOT) 392 U/L (17-59); Albumin 2.7 g/dl (3.5-5.0); Alkaline Phosphatase 194 U/L (38-126); Blood Urea Nitrogen 16 mg/dl (9-20); Calcium 7.5 mg/dl (8.4-10.2); Carbon Dioxide 20 mmol/L (22-30); Chloride 111 mmol/L (98-107); Estimated Creatinine Clearance 64 ml/min; Glucose 100 mg/dl (70-99); Potassium 3.2 mmol/L (3.5-5.1); Sodium 138 mmol/L (135-145); Total Bilirubin 1.2 mg/dl (0.2-1.3); Total Protein 5.5 g/dl (6.3-8.2); Uric Acid 2.9 mg/dl (3.5-8.5); eGFR > 60.00
[2025-03-13] MEDS: TOPROL XL 100 MG PO (07:55)
[2025-03-13] MEDS: ELIQUIS 5 MG PO ×2 (07:55→21:57)
[2025-03-13 07:59] LABS: Total CK 8586 U/L (55-170)
[2025-03-13 08:24] LABS: CKMB 12.7 ng/ml (0.0-3.4)
[2025-03-13] MEDS: KCL ELIXIR 40 MEQ PO (08:29)
[2025-03-13] MEDS: LR 1000 IV ×2 (08:31→16:50)
[2025-03-13] MEDS: DELTASONE 50 MG PO (10:17)
[2025-03-13] MEDS: COLCHICINE 0.6 MG PO (10:22)
[2025-03-13 10:48] LABS: Erythrocyte Sed Rate 86 mm/hour (0-20)
--- NOTE | 2025-03-13 11:18 | W.PN.HOSP.TC ---
Today's Communication/Plan
-
decrease fluid
IS
sterids for gout
pain control
Assessment / Plan
Assessment / Plan
#Severe rhabdomyolysis/myalgia likely 2/2 to Crestor
# Transaminitis likely secondary to rhabdomyolysis
# Elevated troponin likely secondary rhabdomyolysis
- CPK was significantly elevated on admission. CPK downtrending to 8k now.
- Continue with aggressive IV fluid resuscitation.
- AST and ALT improving
- Abdominal ultrasound noted
- T. bili and downtrended to normal. Seems chronically elevated AST.
- Continue to trend CPK and LFTs.
#acute kidney injury
#Hypokalemia
- Creatinine downtrending. Continue with IV fluid resuscitation
-Replete and monitor
#Acute on chronic gout flare up
-start patient on prednisone 50mg
-colchine x 1 dose only as interaction w/amiodarone. will d/w with pharmacy.
-ESR/CRP elevated. Afebrile.
#atrial flutter
- continue amiodarone, Eliquis and metoprolol
#hypercholesterolemia
#hypertriglyceridemia
- hold rosuvastatin in setting of transaminitis
#Hx pancreatitis
#Hepatic steatosis
#Hx of alcohol abuse
#Splenomegaly
- Will will need close outpatient follow-up w/ GI
Code status: full code
DVT prophylaxis: Eliquis
Anticipated Discharge: > 48 hours
Subjective/Interval History
-
Date of Service: March 13, 2025
States of left elbow and knee pain continues.
Denies shortness of breath
states has history of gout and takes NSAIDs at home
Objective Data
-
Labs:
Laboratory Results
03/13/25
06:34
WBC 6.4
Hgb 9.3 L
Hct 26.8 L
Plt Count 97 L
Sodium 138
Potassium 3.2 L
Chloride 111 H
Carbon Dioxide 20 L
BUN 16
Creatinine 1.3
Glucose 100 H
Calcium 7.5 L
Total Bilirubin 1.2
AST 392 H
ALT 98 H
Alkaline Phosphatase 194 H
Vital Signs:
Vital Signs
Temp Pulse Resp BP Pulse Ox
98.2 F 65 16 166/64 96
03/13/25 07:30 03/13/25 07:30 03/13/25 07:30 03/13/25 07:30 03/13/25 07:30
I&O
03/12/25 03/13/25 03/14/25
06:59 06:59 06:59
Intake Total 2760 / 2760
Output Total 350 / 350
Balance 2410 / 2410
Physical Exam
-
General: Well Developed and No Apparent Distress
HEENT: Normocephalic, Atraumatic and Moist Mucous Membranes
Respiratory: Clear to Auscultation
Cardiac: Regular Rhythm and S1/S2; Negative Murmur, Rub or Gallop
GI: Soft, Nontender, Nondistended and Normal Bowel Sounds; Negative Organomegaly
Rectal: Deferred by Provider
Musculoskeletal: No Clubbing, No Cyanosis, No Edema and Other (Left elbow and left knee pain-TTP. No erythema or significant swelling noted. Sensation intact. )
Skin: Warm; Negative Rash
Neuro: Awake, Alert, Oriented, AO x 3, No Motor Deficits, Nonfocal/Grossly Intact, Central Nerve's Intact and No Sensory Deficits; Negative Tremors, Sedated, Slurred Speech or Facial Droop
Psych: Calm
Data Reviewed
-
Total Time Spent with Patient (in minutes): 56
[2025-03-13 11:40] VITALS: BP 129/75
[2025-03-13] MEDS: ROXICODONE 10 MG PO ×3 (11:50→21:56)
--- NOTE | 2025-03-13 12:05 | CM ---
Patient seen at bedside
pain control, steroids
PLAN: Home, no needs anticipated
drove self
--- NOTE | 2025-03-13 12:52 | PN.CDI ---
CDI
- -
CDI:
Physician Documentation Request
Admit Date: 03/11/25 18:19
Dear Doctor Clementina,
Patient admitted with severe rhabdomyolysis likely 2/2 to [facility]
Troponin noted to be elevated.
Laboratory Tests
03/11/25 03/11/25 03/12/25
14:42 21:09 04:10
Troponin I 0.055 H* 0.047 H* 0.063 H* D
Could you please provide a diagnosis that supports the etiology of the elevated troponin:
Non ischemic myocardial injury
Type II KS demand ischemia
Other
Use of terms such as suspected, likely, concern for, or probable (associated with a specific diagnosis that is being evaluated, monitored, or treated as if it exists) are acceptable and can be coded in the inpatient setting, when documented at the
time of discharge.
Thank you,
Parvin Sin RN, BSN
CDI Specialist
tiger text
Please use your independent medical judgment in providing your response.
--- NOTE | 2025-03-13 14:15 | PTCARENOTE ---
patient's left elbow and left knee pain continues. PRN Roxicodone with increased dose of 10mgs vs 15mgs with effectiveness. tolerating diet, left knee and left elbow tender to palpation with edema/swelling. decreased ROM of left elbow especially
due to pain, turns with assist x1, vss, will continue to monitor.
[2025-03-13 15:45] VITALS: BP 119/72
[2025-03-13] MEDS: PACERONE 100 MG PO (18:14)
[2025-03-13 19:00] VITALS: BP 117/67
[2025-03-13] MEDS: TOPROL XL 200 MG PO (21:58)
[2025-03-13 23:00] VITALS: BP 124/78
[2025-03-14 03:00] VITALS: BP 110/69
[2025-03-14 06:17] VITALS: BMI 31.1
[2025-03-14 07:05] LABS: % Immature Granulocytes 0.5 % (0-0.5); % Lymphocytes 4.2 % (20.5-51.1); % Monocytes 18.2 % (1.7-9.3); % Neutrophils 77.1 % (42.2-75.2); Absolute Lymphocytes 0.4 10^3/uL (1.2-3.4); Absolute Monocytes 1.5 10^3/uL (0.1-0.6); Absolute Neutrophils 6.4 10^3/uL (1.4-6.5); Hematocrit 27.3 % (39.0-52.0); Hemoglobin 9.2 g/dL (13.0-18.0); Mean Corp Hgb Conc. 33.7 g/dL (33.0-37.0); Mean Corpuscular Hgb 38.5 pg (27.0-31.0); Mean Corpuscular Volume 114.2 fL (80.0-94.0); Mean Platelet Volume 11.4 fL (7.4-10.4); Nucleated Red Blood Cells % 0 % (-); Platelet Count 113 10^3/uL (130-400); Red Blood Cell Count 2.39 10^6/uL (4.70-6.10); White Blood Cell Count 8.3 10^3/uL (4.8-10.8)
[2025-03-14 07:17] LABS: ALT (SGPT) 91 U/L (0-50); AST (SGOT) 266 U/L (17-59); Alkaline Phosphatase 175 U/L (38-126); Blood Urea Nitrogen 20 mg/dl (9-20); Calcium 7.8 mg/dl (8.4-10.2); Carbon Dioxide 19 mmol/L (22-30); Chloride 111 mmol/L (98-107); Estimated Creatinine Clearance 70 ml/min; Glucose 124 mg/dl (70-99); Sodium 139 mmol/L (135-145); Total Bilirubin 1.4 mg/dl (0.2-1.3); eGFR > 60.00
[2025-03-14 07:30] LABS: Total CK 6055 U/L (55-170)
[2025-03-14 08:03] LABS: CKMB 14.1 ng/ml (0.0-3.4)
[2025-03-14 08:04] VITALS: BP 115/66
[2025-03-14] MEDS: ELIQUIS 5 MG PO ×2 (09:15→21:10)
[2025-03-14] MEDS: DELTASONE 50 MG PO (09:16)
[2025-03-14] MEDS: SODIUM BICARBONATE 650 MG PO ×3 (09:16→21:10)
[2025-03-14] MEDS: TOPROL XL 100 MG PO (09:16)
[2025-03-14] MEDS: ROXICODONE 10 MG PO ×3 (09:19→21:17)
[2025-03-14] MEDS: LR 1000 IV ×2 (09:21→16:05)
[2025-03-14] MEDS: LR IV (09:23)
--- NOTE | 2025-03-14 11:14 | W.PN.HOSP.TC ---
Today's Communication/Plan
-
Check elbow and knee x-ray
Ice pack
Naproxen x 1
Continue with aggressive fluid resuscitation
Continue with steroids
Assessment / Plan
Assessment / Plan
#Severe rhabdomyolysis/myalgia likely 2/2 to Crestor
# Transaminitis likely secondary to rhabdomyolysis
# Elevated troponin likely secondary rhabdomyolysis
- CPK was significantly elevated on admission. CPK downtrending to 6k now from 21K on admission.
- Continue with aggressive IV fluid resuscitation.
- AST and ALT continues to improving
- Abdominal ultrasound noted
- T. bili and downtrended to normal. Seems chronically elevated AST.
- Continue to trend CPK and LFTs.
- Showing signs of mild anasarca.
#acute kidney injury
#Hypokalemia
-Creatinine downtrending. Continue with IV fluid resuscitation
-Replete and monitor
#Acute on chronic gout flare up
# Left knee and elbow pain secondary to above
-start patient on prednisone 50mg. One-time dose of naproxen
-colchine x 1 dose only as interaction w/amiodarone. d/w with pharmacy.
-ESR/CRP elevated. Afebrile.
-Check left knee and elbow x-ray. Left elbow movement significantly improved. Ice pack of the left knee.
-Did recommend to discuss with primary about discussion about allopurinol in the future
#atrial flutter
- continue amiodarone, Eliquis and metoprolol
#hypercholesterolemia
#hypertriglyceridemia
- hold rosuvastatin in setting of transaminitis
#Hx pancreatitis
#Hepatic steatosis
#Hx of alcohol abuse
#Splenomegaly
- Will will need close outpatient follow-up w/ GI
- Quit drinking 2 weeks ago. Used to drink 4 drinks per night for the past 2 years continuously
Code status: full code
DVT prophylaxis: Eliquis
PT eval in am
Anticipated Discharge: > 48 hours
Subjective/Interval History
-
Date of Service: March 14, 2025
Pt with significant improvement in left upper extremity movement. Pain has decreased
States remains with left knee pain
Objective Data
-
Labs:
Laboratory Results
03/14/25
06:29
WBC 8.3
Hgb 9.2 L
Hct 27.3 L
Plt Count 113 L
Sodium 139
Potassium 4.0
Chloride 111 H
Carbon Dioxide 19 L
BUN 20
Creatinine 1.2
Glucose 124 H
Calcium 7.8 L
Total Bilirubin 1.4 H
AST 266 H
ALT 91 H
Alkaline Phosphatase 175 H
Vital Signs:
Vital Signs
Temp Pulse Resp BP Pulse Ox
97.8 F 67 18 115/66 92
03/14/25 08:04 03/14/25 08:04 03/14/25 08:04 03/14/25 08:04 03/14/25 08:04
I&O
03/13/25 03/14/25 03/15/25
06:59 06:59 06:59
Intake Total 2760 / 2760 640 / 640
Output Total 350 / 350 1300 / 1300
Balance 2410 / 2410 -660 / -660
Data Reviewed
-
Total Time Spent with Patient (in minutes): 55
[2025-03-14 11:26] VITALS: BP 105/71
[2025-03-14] MEDS: NAPROSYN 500 MG PO (11:32)
[2025-03-14 15:19] VITALS: BP 118/77
[2025-03-14] MEDS: TOPROL XL 200 MG PO (21:11)
[2025-03-15 00:37] VITALS: BP 113/73
[2025-03-15] MEDS: LR 1000 IV ×3 (01:05→20:35)
[2025-03-15 07:29] LABS: ALT (SGPT) 96 U/L (0-50); AST (SGOT) 217 U/L (17-59); Albumin 3.3 g/dl (3.5-5.0); Alkaline Phosphatase 182 U/L (38-126); Blood Urea Nitrogen 31 mg/dl (9-20); Calcium 8.4 mg/dl (8.4-10.2); Carbon Dioxide 22 mmol/L (22-30); Chloride 108 mmol/L (98-107); Estimated Creatinine Clearance 60 ml/min; Glucose 99 mg/dl (70-99); Potassium 4.3 mmol/L (3.5-5.1); Sodium 139 mmol/L (135-145); Total Bilirubin 1.2 mg/dl (0.2-1.3); Total Protein 6.4 g/dl (6.3-8.2); eGFR 55.78
[2025-03-15 07:53] LABS: Total CK 4618 U/L (55-170)
[2025-03-15 07:57] LABS: % Immature Granulocytes 0.5 % (0-0.5); % Lymphocytes 4.6 % (20.5-51.1); % Monocytes 12.9 % (1.7-9.3); Absolute Lymphocytes 0.4 10^3/uL (1.2-3.4); Absolute Neutrophils 6.6 10^3/uL (1.4-6.5); Hematocrit 30.5 % (39.0-52.0); Hemoglobin 10.4 g/dL (13.0-18.0); Mean Corp Hgb Conc. 34.1 g/dL (33.0-37.0); Mean Corpuscular Volume 111.3 fL (80.0-94.0); Mean Platelet Volume 11.5 fL (7.4-10.4); Nucleated Red Blood Cells % 0 % (-); Platelet Count 136 10^3/uL (130-400); Red Blood Cell Count 2.74 10^6/uL (4.70-6.10); Red Cell Dist. Width 13.9 % (11.5-14.5); White Blood Cell Count 8.1 10^3/uL (4.8-10.8)
[2025-03-15 08:02] VITALS: BP 120/75
[2025-03-15 08:39] LABS: CKMB 22.1 ng/ml (0.0-3.4)
[2025-03-15] MEDS: DELTASONE 50 MG PO (09:20)
[2025-03-15] MEDS: TOPROL XL 100 MG PO (09:21)
[2025-03-15] MEDS: ELIQUIS 5 MG PO ×2 (09:21→20:29)
[2025-03-15] MEDS: SODIUM BICARBONATE 650 MG PO ×3 (09:21→20:29)
--- NOTE | 2025-03-15 09:32 | PN.CDI ---
CDI
- -
CDI:
Physician Documentation Request
Admit Date: 03/11/25 18:19
Dear Doctor Clementina,
Patient admitted with severe rhabdomyolysis likely secondary to Crestor.
Progress notes also include a diagnosis of CECILIA.
Creatinine results:
Laboratory Tests
03/11/25 03/12/25 03/13/25
11:16 04:10 06:34
Creatinine 1.6 H 1.3 1.3
03/14/25 03/15/25
06:29 06:46
Creatinine 1.2 1.4 H
Criteria for CECILIA*
1 Increase in serum creatinine by > or = to 0.3 mg/dL (> or = to 26.5 micromol/L) within 48 hours, OR
2 Increase in serum creatinine to > or = to 1.5 times baseline, which is known or presumed to have occurred within 7 days, OR
3 Urine volume < 0.5 nL/kg/hour for six hours
Based on the above information and the recognized standard for CECILIA could you please verify this diagnoses is still accurate and reflective of the patient�s condition to ensure quality of the medical record.
Please clarify in the Progress Notes:
�CECILIA is/was present and is a clinical diagnosis based on (please include this additional support in the medical record)
�After study CECILIA has been ruled out
�Other
Use of terms such as suspected, likely, concern for, or probable (associated with a specific diagnosis that is being evaluated, monitored, or treated as if it exists) are acceptable and can be coded in the inpatient setting, when documented at the
time of discharge.
Thank you,
Parvin Sin RN, BSN
CDI Specialist
tiger text
Please use your independent medical judgment in providing your response.
--- NOTE | 2025-03-15 11:27 | W.PN.HOSP.TC ---
Addendum entered and electronically signed by Markus Mcrae MD 03/16/25 12:31:
Chronic anemia and thrombocytopenia? Due to alcohol abuse
Monitor for now
Original Note:
Today's Communication/Plan
-
reduce IVF rate
compression therapy
Ice pack to knee
steroids for gout
duoneb
PT eval
Assessment / Plan
Assessment / Plan
#Severe rhabdomyolysis/myalgia likely 2/2 to Crestor
# Transaminitis likely secondary to rhabdomyolysis
# Elevated troponin likely secondary rhabdomyolysis
- CPK was significantly elevated on admission. CPK downtrending to 4.6k now from 21K on admission.
- Continue with aggressive IV fluid resuscitation-reduce IVF rate. Can probably stop in 24h. Has good po intake
- AST and ALT continues to improving
- Abdominal ultrasound noted
- T. bili and downtrended to normal. Seems chronically elevated AST.
- Continue to trend CPK and LFTs.
- Showing signs of mild anasarca.
#acute kidney injury on ckd stage 3a
#Hypokalemia
-Continue with IV fluid resuscitation. Trend cr.
-Replete and monitor
#Acute on chronic gout flare up
#Left knee and elbow pain secondary to above
-start patient on prednisone 50mg. One-time dose of naproxen
-colchine x 1 dose only as interaction w/amiodarone. d/w with pharmacy.
-ESR/CRP elevated. Afebrile.
-Left knee with osteoarthritis and elbow [id number]. Left elbow movement significantly improved. Ice pack of the left knee. Left knee movement and swelling improved
-Did recommend to discuss with primary about discussion about allopurinol in the future
#Mild shortness of breath
-on room air.
-repaet CXR this
-duoneb
#atrial flutter
- continue amiodarone, Eliquis and metoprolol
#hypercholesterolemia
#hypertriglyceridemia
- hold rosuvastatin in setting of transaminitis
#Hx pancreatitis
#Hepatic steatosis
#Hx of alcohol abuse
#Splenomegaly
- Will will need close outpatient follow-up w/ GI
- Quit drinking 2 weeks ago. Used to drink 4 drinks per night for the past 2 years continuously
Code status: full code
DVT prophylaxis: Eliquis
PT eval
Anticipated Discharge: > 48 hours
Subjective/Interval History
-
Date of Service: March 15, 2025
able to move left elblow alot better-almost to baseline
states of Left knee pain
left knee swelling has decreased
states of sob
Objective Data
-
Labs:
Laboratory Results
03/15/25
06:46
WBC 8.1
Hgb 10.4 L
Hct 30.5 L
Plt Count 136 D
Sodium 139
Potassium 4.3
Chloride 108 H
Carbon Dioxide 22
BUN 31 H
Creatinine 1.4 H
Glucose 99
Calcium 8.4
Total Bilirubin 1.2
AST 217 H
ALT 96 H
Alkaline Phosphatase 182 H
Vital Signs:
Vital Signs
Temp Pulse Resp BP Pulse Ox
97.7 F 60 14 120/75 97
03/15/25 08:02 03/15/25 09:21 03/15/25 08:02 03/15/25 09:21 03/15/25 08:02
I&O
03/14/25 03/15/25 03/16/25
06:59 06:59 06:59
Intake Total 640 / 640 440 / 440
Output Total 1300 / 1300
Balance -660 / -660 440 / 440
Physical Exam
-
General: Well Developed and No Apparent Distress
HEENT: Normocephalic, Atraumatic and Moist Mucous Membranes
Respiratory: Wheezes and Rhonchi
Cardiac: Regular Rhythm and S1/S2; Negative Murmur, Rub or Gallop
GI: Soft, Nontender, Nondistended and Normal Bowel Sounds; Negative Organomegaly
Rectal: Deferred by Provider
Musculoskeletal: No Clubbing, No Cyanosis, Edema, Right Lower Extrem, Edema, Left Lower Extrem and Other (Left elbow with good AROM. Left knee swelling improved. )
Skin: Warm; Negative Rash
Neuro: Awake, Alert, Oriented, AO x 3, No Motor Deficits, Nonfocal/Grossly Intact, Central Nerve's Intact and No Sensory Deficits; Negative Tremors, Sedated, Slurred Speech or Facial Droop
Psych: Calm
Data Reviewed
-
Total Time Spent with Patient (in minutes): 55
[2025-03-15] MEDS: DUONEB INH (12:16)
[2025-03-15] MEDS: DUONEB 3 ML INH ×2 (12:16→18:05)
--- NOTE | 2025-03-15 12:37 | CM ---
Patient sen bedside.
Patient denies home care needs at this time.
PT eval pending.
Patient drove to the hospital and plans on driving home.
IMM reviewed and signed.
Plan: home no needs anticipated.
[2025-03-15 15:43] VITALS: BP 132/80
[2025-03-15] MEDS: PACERONE 100 MG PO (18:40)
[2025-03-15] MEDS: TOPROL XL 200 MG PO (20:29)
[2025-03-16 01:22] VITALS: BP 115/70
[2025-03-16 07:00] VITALS: BP 129/82
[2025-03-16] MEDS: DUONEB 3 ML INH ×2 (07:38→12:20)
[2025-03-16] MEDS: ELIQUIS 5 MG PO ×2 (07:48→20:44)
[2025-03-16] MEDS: SODIUM BICARBONATE 650 MG PO (07:48)
[2025-03-16] MEDS: DELTASONE 50 MG PO (07:48)
[2025-03-16] MEDS: TOPROL XL 100 MG PO (07:49)
[2025-03-16] MEDS: LR 1000 IV (09:02)
[2025-03-16 09:40] LABS: % Basophils 0.2 % (0-2); % Immature Granulocytes 0.7 % (0-0.5); % Lymphocytes 6.5 % (20.5-51.1); % Monocytes 14.2 % (1.7-9.3); % Neutrophils 78.4 % (42.2-75.2); Absolute Lymphocytes 0.4 10^3/uL (1.2-3.4); Absolute Monocytes 0.9 10^3/uL (0.1-0.6); Absolute Neutrophils 4.8 10^3/uL (1.4-6.5); Hematocrit 27.5 % (39.0-52.0); Hemoglobin 9.2 g/dL (13.0-18.0); Mean Corp Hgb Conc. 33.5 g/dL (33.0-37.0); Mean Corpuscular Volume 113.6 fL (80.0-94.0); Mean Platelet Volume 11.6 fL (7.4-10.4); Nucleated Red Blood Cells % 0.3 % (-); Platelet Count 125 10^3/uL (130-400); Red Blood Cell Count 2.42 10^6/uL (4.70-6.10); Red Cell Dist. Width 14.2 % (11.5-14.5); White Blood Cell Count 6.1 10^3/uL (4.8-10.8)
[2025-03-16 10:35] LABS: ALT (SGPT) 89 U/L (0-50); AST (SGOT) 153 U/L (17-59); Albumin 3.3 g/dl (3.5-5.0); Alkaline Phosphatase 170 U/L (38-126); Blood Urea Nitrogen 35 mg/dl (9-20); Calcium 8.7 mg/dl (8.4-10.2); Carbon Dioxide 23 mmol/L (22-30); Chloride 108 mmol/L (98-107); Estimated Creatinine Clearance 56 ml/min; Glucose 77 mg/dl (70-99); Potassium 4.1 mmol/L (3.5-5.1); Sodium 141 mmol/L (135-145); Total CK 2442 U/L (55-170); Total Protein 6.2 g/dl (6.3-8.2); eGFR 51.35
[2025-03-16 11:02] LABS: CKMB 15.8 ng/ml (0.0-3.4)
[2025-03-16 11:40] VITALS: BMI 31.1
--- NOTE | 2025-03-16 12:20 | W.PN.HOSP.TC ---
Today's Communication/Plan
-
DC IV fluids
Encourage p.o. intake
Gout symptoms of joint pain has improved
Continue with out of bed activity
Assessment / Plan
Assessment / Plan
#Severe rhabdomyolysis/myalgia likely 2/2 to Crestor
# Transaminitis likely secondary to rhabdomyolysis
# Elevated troponin likely secondary rhabdomyolysis
- CPK was significantly elevated on admission. CPK downtrending to 2400
- Continue with aggressive IV fluid resuscitation-reduce IVF rate. Can probably stop in 24h. Has good po intake
- AST and ALT continues to improving
- Abdominal ultrasound noted
- T. bili and downtrended to normal. Seems chronically elevated AST.
- Continue to trend CPK and LFTs.
- CPK continues to downtrend DC further fluids and monitor
#acute kidney injury on ckd stage 3a
#Hypokalemia
# Mild anion gap metabolic acidosis
- Monitor creatinine.
-Replete and monitor. DC bicarbonate.
#Acute on chronic gout flare up
#Left knee and elbow pain secondary to above
- Decrease steroids to 40 mg.
-colchine x 1 dose only as interaction w/amiodarone. d/w with pharmacy.
-ESR/CRP elevated. Afebrile.
-Left knee with osteoarthritis and elbow [id number]. Left elbow movement significantly improved. Ice pack of the left knee. Left knee movement and swelling improved
-Did recommend to discuss with primary about discussion about allopurinol in the future
#Mild shortness of breath
-on room air.
-repeat chest x-ray negative for infiltrates or pulmonary edema. Possibly due to abdominal distention compressing on diaphragm
-duoneb can be stopped later today- No wheezing.
#atrial flutter
- continue amiodarone, Eliquis and metoprolol
#hypercholesterolemia
#hypertriglyceridemia
- hold rosuvastatin in setting of transaminitis
#Hx pancreatitis
#Hepatic steatosis
#Hx of alcohol abuse
#Splenomegaly
- Will will need close outpatient follow-up w/ GI
- Quit drinking 2 weeks ago. Used to drink 4 drinks per night for the past 2 years continuously
Code status: full code
DVT prophylaxis: Eliquis
PT eval home pt
Anticipated Discharge: Within 24 hours
Subjective/Interval History
-
Date of Service: March 16, 2025
states of significant improvement in L elbow and Left knee pain
state of abd distention
Objective Data
-
Labs:
Laboratory Results
03/16/25
06:32
WBC 6.1
Hgb 9.2 L
Hct 27.5 L
Plt Count 125 L
Sodium 141
Potassium 4.1
Chloride 108 H
Carbon Dioxide 23
BUN 35 H
Creatinine 1.5 H
Glucose 77
Calcium 8.7
Total Bilirubin 1.0
AST 153 H
ALT 89 H
Alkaline Phosphatase 170 H
Vital Signs:
Vital Signs
Temp Pulse Resp BP Pulse Ox
97.6 F 82 16 129/82 96
03/16/25 07:00 03/16/25 07:59 03/16/25 07:59 03/16/25 07:49 03/16/25 07:59
I&O
03/15/25 03/16/25 03/17/25
06:59 06:59 06:59
Intake Total 440 / 440 960 / 960
Balance 440 / 440 960 / 960
Physical Exam
-
General: Well Developed and No Apparent Distress
HEENT: Normocephalic, Atraumatic and Moist Mucous Membranes
Respiratory: Wheezes and Rhonchi
Cardiac: Regular Rhythm and S1/S2; Negative Murmur, Rub or Gallop
GI: Soft, Nontender, Normal Bowel Sounds and Distended (No fluid wave.); Negative Organomegaly
Rectal: Deferred by Provider
Musculoskeletal: No Clubbing, No Cyanosis, Edema, Right Lower Extrem (+1 pitting edema), Edema, Left Lower Extrem (+1 pitting edema) and Other (Significant improvement in left elbow and left knee pain swelling and movements.)
Skin: Warm; Negative Rash
Neuro: Awake, Alert, Oriented, AO x 3, No Motor Deficits, Nonfocal/Grossly Intact, Central Nerve's Intact and No Sensory Deficits; Negative Tremors, Sedated, Slurred Speech or Facial Droop
Psych: Calm
Data Reviewed
-
Total Time Spent with Patient (in minutes): 55
[2025-03-16 15:00] VITALS: BP 137/82
[2025-03-16] MEDS: TOPROL XL PO (20:44)
[2025-03-16] MEDS: TOPROL XL 200 MG PO (20:51)
[2025-03-16 23:15] VITALS: BP 139/86
[2025-03-17 07:51] VITALS: BP 123/75
[2025-03-17 08:17] LABS: % Basophils 0.2 % (0-2); % Eosinophils 0.2 % (0-6); % Immature Granulocytes 1.6 % (0-0.5); % Monocytes 14.3 % (1.7-9.3); % Neutrophils 71.7 % (42.2-75.2); Absolute Immature Granulocytes 0.1 10^3/uL (0-0.05); Absolute Lymphocytes 0.6 10^3/uL (1.2-3.4); Absolute Monocytes 0.7 10^3/uL (0.1-0.6); Absolute Neutrophils 3.7 10^3/uL (1.4-6.5); Hematocrit 29.1 % (39.0-52.0); Hemoglobin 9.7 g/dL (13.0-18.0); Mean Corp Hgb Conc. 33.3 g/dL (33.0-37.0); Mean Corpuscular Hgb 37.9 pg (27.0-31.0); Mean Corpuscular Volume 113.7 fL (80.0-94.0); Mean Platelet Volume 11.5 fL (7.4-10.4); Nucleated Red Blood Cells % 1.6 % (-); Platelet Count 149 10^3/uL (130-400); Red Blood Cell Count 2.56 10^6/uL (4.70-6.10); Red Cell Dist. Width 14.4 % (11.5-14.5); White Blood Cell Count 5.1 10^3/uL (4.8-10.8)
[2025-03-17 08:51] LABS: ALT (SGPT) 84 U/L (0-50); AST (SGOT) 109 U/L (17-59); Albumin 3.4 g/dl (3.5-5.0); Alkaline Phosphatase 151 U/L (38-126); Blood Urea Nitrogen 35 mg/dl (9-20); Calcium 9.4 mg/dl (8.4-10.2); Carbon Dioxide 23 mmol/L (22-30); Chloride 110 mmol/L (98-107); Estimated Creatinine Clearance 56 ml/min; Glucose 82 mg/dl (70-99); Potassium 4.1 mmol/L (3.5-5.1); Sodium 144 mmol/L (135-145); Total CK 861 U/L (55-170); Total Protein 6.4 g/dl (6.3-8.2); eGFR 51.35
[2025-03-17] MEDS: DELTASONE 40 MG PO (08:56)
[2025-03-17] MEDS: TOPROL XL 100 MG PO (08:56)
[2025-03-17] MEDS: ELIQUIS 5 MG PO (08:56)
--- NOTE | 2025-03-17 11:47 | W.PN.HOSP.TC ---
Addendum entered and electronically signed by Markus Mcrae MD 03/17/25 11:57:
Correction acute kidney injury chronic kidney disease stage II.
Original Note:
Today's Communication/Plan
-
Outpatient follow-up PCP
DC Crestor
Steroids for gout
Assessment / Plan
Assessment / Plan
#Severe rhabdomyolysis/myalgia likely 2/2 to Crestor
# Transaminitis likely secondary to rhabdomyolysis
# Elevated troponin likely secondary rhabdomyolysis-patient never had chest pain and has remained chest pain-free
- CPK was significantly elevated on admission.
- Status post aggressive IV fluid resuscitation.
- AST and ALT continues to improving
- Abdominal ultrasound noted
- T. bili and downtrended to normal. Seems chronically elevated AST.
- CPK continues to downtrend to 800s. Patient off fluids for 24 hours and tolerating appropriate oral intake.
#acute kidney injury on ckd stage 3a
#Hypokalemia
# Mild anion gap metabolic acidosis
- Monitor creatinine.
-Replete and monitor. DC bicarbonate.
- Recommended outpatient follow-up
#Acute on chronic gout flare up
#Left knee and elbow pain secondary to above
- Decrease steroids to 40 mg.
-colchine x 1 dose only as interaction w/amiodarone. d/w with pharmacy.
-ESR/CRP elevated. Afebrile.
-Left knee with osteoarthritis and elbow [id number]. Left elbow movement significantly improved. Ice pack of the left knee. Left knee movement and swelling improved
-Did recommend to discuss with primary about discussion about allopurinol in the future
#Mild shortness of breath
-repeat chest x-ray negative for infiltrates or pulmonary edema. Possibly due to abdominal distention compressing on diaphragm
- Resolved. Has remained stable on room air.
#atrial flutter
- continue amiodarone, Eliquis and metoprolol
#hypercholesterolemia
#hypertriglyceridemia
- DC rosuvastatin
#Hx pancreatitis
#Hepatic steatosis
#Hx of alcohol abuse
#Splenomegaly
- Will will need close outpatient follow-up w/ GI
- Quit drinking 2 weeks ago. Used to drink 4 drinks per night for the past 2 years continuously
-Recommend outpatient hepatology follow-up
Code status: full code
DVT prophylaxis: Eliquis
PT eval home pt
More than 30 minutes spent in discharge including
Final examination of the patient
Summarizing hospital stay
Instructions for continuing care to all relevant caregivers
Preparation of discharge records, prescriptions, and referral forms
Total time spent (in minutes): 52
Anticipated Discharge: Today
Subjective/Interval History
-
Date of Service: March 17, 2025
States he continues to feel better
States his elbow is back to baseline left-sided
States significant improvement in the left knee mobility and significant decrease in pain
Denies any chest pain and patient state has remained chest pain-free throughout hospitalization. Denies any chest pain prior to arrival.
States her urine is light yellow in color
Tolerating diet
Objective Data
-
Labs:
Laboratory Results
03/17/25
06:59
WBC 5.1
Hgb 9.7 L
Hct 29.1 L
Plt Count 149
Sodium 144
Potassium 4.1
Chloride 110 H
Carbon Dioxide 23
BUN 35 H
Creatinine 1.5 H
Glucose 82
Calcium 9.4
Total Bilirubin 1.0
AST 109 H
ALT 84 H
Alkaline Phosphatase 151 H
Vital Signs:
Vital Signs
Temp Pulse Resp BP Pulse Ox
97.9 F 58 20 123/75 95
03/17/25 07:51 03/17/25 07:51 03/17/25 07:51 03/17/25 07:51 03/17/25 07:51
I&O
03/16/25 03/17/25 03/18/25
06:59 06:59 06:59
Intake Total 960 / 960 1200 / 1200
Balance 960 / 960 1200 / 1200
Physical Exam
-
General: Well Developed and No Apparent Distress
HEENT: Normocephalic, Atraumatic and Moist Mucous Membranes
Respiratory: Clear to Auscultation
Cardiac: Regular Rhythm and S1/S2; Negative Murmur, Rub or Gallop
GI: Soft, Nontender, Normal Bowel Sounds and Distended (Mild. No pain on palpation light and deep palpation); Negative Organomegaly
Rectal: Deferred by Provider
Musculoskeletal: No Clubbing, No Cyanosis, Edema, Right Lower Extrem (Trace), Edema, Left Lower Extrem (Trace) and Other (Left knee no pain with active range of motion. No pain in the left elbow with active or passive range of motion)
Skin: Warm; Negative Rash
Neuro: Awake, Alert, Oriented, AO x 3, No Motor Deficits, Nonfocal/Grossly Intact, Central Nerve's Intact and No Sensory Deficits; Negative Tremors, Sedated, Slurred Speech or Facial Droop
Psych: Calm
--- NOTE | 2025-03-17 11:51 | W.DCSUMMARY ---
Discharge Summary
Discharge Data
Date of Admission: 03/11/25
Date of Discharge: 03/17/25
-
Pending Results: No
Hospital Course
64-year-old male extensive past medical history of atrial flutter, chronic coagulopathy with Eliquis, hyperlipidemia, hypertension lipidemia, pancreatitis, hepatic steatosis, history of alcohol abuse, splenomegaly, CKD stage II, presented with
severe weakness. Patient was found to have a severe rhabdomyolysis. Patient CK was found to be 21,000. Patient was on aggressive IV fluid resuscitation. Patient CK associated with AST ALT and troponin down trended. Patient never had chest
pain. Patient remained chest pain-free throughout hospitalization. Patient CPK continued downtrend with aggressive IV fluid resuscitation. IV fluid rate was decreased. CPK continue to trend trend and thus it was finally discontinued. Patient
remained with appropriate p.o. intake. CPK downtrended to 800s. Patient potassium was repleted. Patient was discontinued off of Crestor. Patient was also complaining of left elbow and left knee pain due to gout. Patient was started on
prednisone with leading to significant improvement in pain and mobility and almost at baseline. Patient also had mild bump in creatinine which was deemed secondary to severe rhabdomyolysis and recommend to follow-up with primary doctor. Patient
was started on prednisone which will be continued for few more days. Patient was recommended follow-up with primary doctor, nephrology and hepatology as patient was noticed to have a hepatomegaly, splenomegaly and low platelets with history of
alcohol abuse. Patient was counseled multiple times for complete alcohol cessation which he did mention of stopping 2 weeks ago. Patient verbalized understanding. Patient did state of abdominal distention due to IV fluids which has mildly
improved. Patient was tolerating diet without any nausea or vomiting. Having bowel movements. Vital signs were stable and upon reevaluation with PT patient was able to ambulate without difficulty. Patient was mention to return to ER if with any
muscle pain, joint pains and shortness of breath. Patient verbalized understanding.
Portions of this chart may have been created with voice recognition software.� Occasional wrong word or �sound alike� substitutions may have occurred due to the inherent limitations of voice recognition software.
Discharge Plan
-
Patient Disposition: Home with Home Care
Discharge Diagnosis/Procedures: #Severe rhabdomyolysis/myalgia likely 2/2 to Crestor
# Transaminitis likely secondary to rhabdomyolysis
# Elevated troponin likely secondary rhabdomyolysis
#Acute kidney injury on Chronic kidney disease stage 2
#Hypokalemia
#Acute on chronic gout flare up
#Left knee and elbow pain secondary to above
Condition: Fair
Diet: Low Cholesterol
Activity: With assistance and As tolerated
Driving Restrictions: As prior to admission
Blood Work: CBC, CMP and creatinine kinase in 7 days via primary doctor
Other Services: VN
Referrals:
Caren Richard MD [Active] - None (Hepatosplenomegaly with history of alcohol usage)
Harman Tenorio DO [Family Provider] - in less than 1 week
Brian Ordonez MD [Active] - None
Additional Discharge Medication Instructions: Crestor and ibuprofen was discontinued.
Prescriptions:
New
prednisone 20 mg Tablet
40 mg PO DAILY 4 Days Qty: 8 0RF
Continued
metoprolol succinate 100 mg Tablet Extended Release 24 Hr
200 mg PO HS
Eliquis 5 mg Tablet
5 mg PO BID
metoprolol succinate [Toprol XL] 100 mg Tablet Extended Release 24 Hr
100 mg PO DAILY
amiodarone 100 mg Tablet
100 mg PO MOWEFR@1900
Discontinued
ibuprofen 200 mg Tablet
800 mg PO DAILYPRN PRN (Reason: mild pain)
rosuvastatin [Crestor] 20 mg Tablet
20 mg PO DAILY
Discharge Orders:
Discharge Patient (As Directed); Ordered 03/17/25
Ordered By: Markus Mcrae
Discharge Date and Time
Print Language: TAJIK
[2025-03-17 13:12] VITALS: BP 120/76; PULSE 53; O2SAT 98
--- NOTE | 2025-03-17 14:23 | CM ---
Pt for dc today. CM met with pt at bedside. Pt refused consult for VN. has transport home.
== END 2025-03-17 14:36 | disposition home or self-care (01) | DRG 558 ==
LOC: 3 WEST ACU 18:19
PROVIDERS: Nurse Practitioner Family; Student in an Organized Health Care Education/Training Program; ADMITTING PHYSICIAN Hospitalist; ATTENDING PHYSICIAN Hospitalist; EMERGENCY PHYSICIAN Emergency Medicine; FAMILY PHYSICIAN Family Medicine
DX: M62.82 Rhabdomyolysis (principal); I48.92 Unspecified atrial flutter; N17.9 Acute kidney failure, unspecified; E78.00 Pure hypercholesterolemia, unspecified; K76.0 Fatty (change of) liver, not elsewhere classified; T46.6X5A Adverse effect of antihyperlipidemic and antiarteriosclerotic drugs, initial encounter; N18.2 Chronic kidney disease, stage 2 (mild); I12.9 Hypertensive chronic kidney disease with stage 1 through stage 4 chronic kidney disease, or unspecified chronic kidney disease; R79.89 Other specified abnormal findings of blood chemistry; M10.022 Idiopathic gout, left elbow; M10.062 Idiopathic gout, left knee; F10.10 Alcohol abuse, uncomplicated; E87.6 Hypokalemia; E78.1 Pure hyperglyceridemia; R16.2 Hepatomegaly with splenomegaly, not elsewhere classified; D69.6 Thrombocytopenia, unspecified; G47.30 Sleep apnea, unspecified; Z79.01 Long term (current) use of anticoagulants; Z79.899 Other long term (current) drug therapy
CPT/HCPCS: 71045; 71046; 73070; 73560; 76700; 80053; 80143; 81003; 81015; 82077; 82550; 82553; 83690; 83735; 84100; 84484; 84550; 85025; 85027; 85610; 85652; 85730; 86140; 86705; 86706; 86709; 86803; 87086; 87340; 93005; 94640; 96360; 97163; 97530; 99285; J7030